=== PATIENT | male | born 1955 | race African-American/Black ===

== ENCOUNTER 2023-01-01 15:54 | Outpatient (CLI) | payer OTHER | END 2023-01-01 15:55 | disposition home or self-care (01) | LOC: BICRAD 15:54 | PROVIDERS: ATTEND Family Medicine | DX: M25.571 Pain in right ankle and joints of right foot (principal); M79.89 Other specified soft tissue disorders ==

== ENCOUNTER 2023-09-18 15:35 | Outpatient (CLI) | payer OTHER | END 2023-09-18 15:36 | disposition home or self-care (01) | LOC: BICRAD 15:35 | PROVIDERS: ATTEND Family Medicine | DX: M25.561 Pain in right knee (principal); M17.11 Unilateral primary osteoarthritis, right knee ==